=== PATIENT | male | born 1975 | race Two or more races ===

== ENCOUNTER 2019-10-05 11:51 | Emergency (ER) | payer SELFPAY ==
[~2019-10-05] VITALS: Ht 182.9 cm; Wt 81.6 kg
[~2019-10-05 11:51] MED LIST: RIBOFLAVIN100 MG PO
[2019-10-05 12:10] VITALS: BP 145/79
--- NOTE | 2019-10-05 12:20 | NUR ---
ED Nurse Note: Patient arrive to ED from home c/o n/v since this AM, patient states he has bouts of this often and does not know what causes s/s. Patient actively vomiting, has 10/10 aching abdominal pain in the medial lower abdomen. Patient has emesis bag, head of bead in [place] for safety. Patient AxO x 4, diaphoretic. 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
[2019-10-05] MEDS ORDERED: HYDROmorphone 1 MG, DiphenhydrAMINE 25 MG in NS 55 ML IV ONE (12:45)
[2019-10-05] MEDS ORDERED: LORazepam Inj 2mg/ml 1ml IV ONE (12:45)
[2019-10-05] MEDS ORDERED: ZOFRAN ODT8 MG ORAL (13:34)
[2019-10-05] MEDS ORDERED: DICYCLOMINE HCL10 MG ORAL (14:06)
--- NOTE | 2019-10-05 14:29 | Emergency Room Report ---
History of Present Illness General Chief Complaint: Abdominal Pain Source: Patient Present Illness HPI Patient presents with what he calls abdominal migraine Reports that he has been dealing with this for most of his life He reports getting cramping sensation in the mid abdomen followed by increased vomiting denies any fevers or chills denies any chest pain Patient reports that he has had significant work-up And essentially receiving antinausea medicine and Dilaudid is the only thing that seems to help denies any recent travel denies any blood in the stool Allergies: Coded Allergies: No Known Allergies (Unverified , 09/28/19) Patient History Past Medical History: see triage record Reviewed Nursing Documentation: PMH: Agreed; PSxH: Agreed Nursing Documentation-PMH Past Medical History: No History, Except For Review of Systems All Other Systems: negative except mentioned in HPI Physical Exam Vital Signs Date Time Temp Pulse Resp B/P (MAP) Pulse Ox O2 Delivery O2 Flow Rate FiO2 10/05/19 12:04 98.2 88 16 145/79 (101) 100 Room Air Sp02 EP Interpretation: reviewed, normal General Appearance: mild distress - Appears uncomfortable and actively vomiting Head: normocephalic, atraumatic Eyes: bilateral eye PERRL, bilateral eye EOMI ENT: hearing grossly normal, EOM grossly intact Neck: supple Respiratory: lungs clear, no respiratory distress, no retraction Cardiovascular #1: regular rate, rhythm Gastrointestinal: non tender, soft Musculoskeletal: normal inspection Neurologic: alert, oriented x3 Psychiatric: normal inspection Skin: no rash Lymphatic: normal inspection Medical Decision Making Diagnostic Impression: Primary Impression: abdominal apin ER Course With the history exam and presentation, multiple differentials considered, including but not limited to appendicitis, gastritis, cholecystitis, diverticulitis Patient does not want to have any further imaging performed He reports that the pain is very consistent with his usual discomfort Further IV hydration and intervention is made patient has done significantly better and resting comfortably And requires close outpatient follow-up Last Vital Signs Date Time Temp Pulse Resp B/P (MAP) Pulse Ox O2 Delivery O2 Flow Rate FiO2 10/05/19 13:44 98.2 10/05/19 12:10 88 16 145/79 100 Room Air Status: improved Disposition: HOME, SELF-CARE Condition: Improved Scripts Dicyclomine Hcl* (DICYCLOMINE HCL*) 10 Mg Capsule 10 MG ORAL TID, #10 CAP Prov: Rafael Davidson DO 10/05/19 Ondansetron Odt* (ZOFRAN ODT*) 8 Mg Tab.rapdis 4 MG ORAL Q12HR PRN for Nausea & Vomiting, #12 TAB Prov: Rafael Davidson DO 10/05/19 Referrals: [facility] Patient Instructions: Abdominal Pain, Adult Additional Instructions: Patient is provided with the discharge instructions notified to follow up with primary doctor in the next 2-3 days otherwise return to the er with any worsening symptoms. Please note that this report is being documented using [employer] technology. This can lead to erroneous entry secondary to incorrect interpretation by the dictating instrument. Rafael Davidson DO Oct 05, 2019 14:29
[2019-10-05 15:45] VITALS: BP 134/81
--- NOTE | 2019-10-05 15:45 | NUR ---
ED Nurse Note: Patient cleared for DC by Dr. Davidson. Per Dr. Davidson, patient allowed to rest in bed until stable on feet to go home. Patient walks with steady gait, no complaints of pain. IV and ID band removed. All belongings with patient, VSS.
== END 2019-10-05 15:45 | disposition home or self-care (01) ==
LOC: EMR 12:25
DX: R10.9 Unspecified abdominal pain (principal)
CPT/HCPCS: 96361; 96374; 96375; 99284; J1170; J1200; J7030

== ENCOUNTER 2019-10-07 08:59 | Emergency (ER) | payer SELFPAY ==
[~2019-10-07] VITALS: Ht 185.4 cm; Wt 81.6 kg
[~2019-10-07 08:59] MED LIST changes: +DICYCLOMINE HCL10 MG ORAL; +ZOFRAN ODT8 MG ORAL
[2019-10-07 09:02] VITALS: BP 149/103
--- NOTE | 2019-10-07 09:10 | NUR ---
ED Nurse Note: Patient walked into ED from home c/o abdominal pain 10/10 on the medial periumbilical but radiates diffusely over the abdomen. c/o nausea and vomiting. patient is vomiting in the ER, yellow liquid. patient reports hx of "abdominal migraine" and has been having recurring pain. patient is alert awake x4 ambulatory, breathing unlabored and even, speaking in full sentences. on a hospital gown.
--- NOTE | 2019-10-07 09:22 | Emergency Room Report ---
History of Present Illness General Chief Complaint: Abdominal Pain Source: Patient Present Illness HPI 44-year-old male presents after increased abdominal discomfort. Patient reports having multiple episodes of similar symptoms in the past. Had previous cholecystectomy. Denies any diarrhea. Reports having epigastric discomfort. Denies any fever. Denies any diarrhea. States he has prior history of intestinal migraines. Had recently been seen at this emergency department. Reports having multiple negative imaging studies in the past. Reports having a prior endoscopy. Allergies: Coded Allergies: No Known Allergies (Unverified , 09/28/19) Patient History Past Medical History: see triage record Reviewed Nursing Documentation: PMH: Agreed; PSxH: Agreed Nursing Documentation-PMH Past Medical History: No History, Except For Review of Systems All Other Systems: negative except mentioned in HPI Physical Exam Vital Signs Date Time Temp Pulse Resp B/P (MAP) Pulse Ox O2 Delivery O2 Flow Rate FiO2 10/07/19 09:02 98.2 94 19 149/103 (118) 99 Room Air Sp02 EP Interpretation: reviewed, normal General Appearance: normal inspection, well appearing, no apparent distress, alert, GCS 15 Head: atraumatic ENT: normal ENT inspection, hearing grossly normal, normal voice Neck: normal inspection, full range of motion, supple, no bony tend Respiratory: normal inspection, lungs clear, normal breath sounds, no respiratory distress, no retraction, no wheezing Cardiovascular #1: regular rate, rhythm, no edema Gastrointestinal: normal inspection, normal bowel sounds, non tender, soft, no guarding, no hernia, other - Mild diffuse tenderness without any guarding or rebound Genitourinary: no CVA tenderness Musculoskeletal: normal inspection, back normal, normal range of motion Neurologic: alert, responsive, speech normal, normal inspection Psychiatric: normal inspection, judgement/insight normal, mood/affect normal Medical Decision Making Diagnostic Impression: Primary Impression: Nonspecific abdominal pain Additional Impression: Hyperemesis ER Course Patient presented for abdominal pain. Differential diagnoses included ischemic bowel, appendicitis, perforated viscus, abdominal aortic aneurysm, inferior myocardial infarction, viral gastroenteritis among others.Because patient's complexity laboratory testing ordered.Patient reports having multiple similar episodes in the past. He states he has prior history of abdominal migraine. He does report smoking marijuana daily. Reports frequent episodes of nausea without any vomiting. He states he is had this for many years. Patient requested narcotic pain medications however I do not feel this is indicated. Patient was given IV Haldol, capsaicin and IV Benadryl. He stated he had improvement in his symptoms. Lipase was normal White blood count was normal Patient appears to be stable for close outpatient follow up. Patient was advised to discontinue marijuana use. He was advised to follow-up with his primary care physician for recheck. Patient is advised to return if any worsening condition or if any changes in status that are concerning. This report is dictated with [employer] dry [employer] tender software which may occasionally lead to discrepancies related to use of this software. Labs Test 10/07/19 09:40 10/07/19 09:55 Prothrombin Time 10.8 SEC (9.30-11.50) Prothromb Time International Ratio 1.0 (0.9-1.1) Activated Partial Thromboplast Time 25 SEC (23-33) Sodium Level 142 MMOL/L (136-145) Potassium Level 4.2 MMOL/L (3.5-5.1) Chloride Level 104 MMOL/L (98-107) Carbon Dioxide Level 28 MMOL/L (21-32) Anion Gap 11 mmol/L (5-15) Blood Urea Nitrogen 25 mg/dL (7-18) Creatinine 1.4 MG/DL (0.55-1.30) Estimat Glomerular Filtration Rate 55.1 mL/min (>60) Glucose Level 120 MG/DL (74-106) Calcium Level 9.8 MG/DL (8.5-10.1) Total Bilirubin 1.0 MG/DL (0.2-1.0) Aspartate Amino Transf (AST/SGOT) 14 U/L (15-37) Alanine Aminotransferase (ALT/SGPT) 26 U/L (12-78) Alkaline Phosphatase 53 U/L (46-116) Total Protein 8.1 G/DL (6.4-8.2) Albumin 4.2 G/DL (3.4-5.0) Globulin 3.9 g/dL Albumin/Globulin Ratio 1.1 (1.0-2.7) Lipase 371 U/L (73-393) White Blood Count 12.1 K/UL (4.8-10.8) Red Blood Count 5.40 M/UL (4.70-6.10) Hemoglobin 16.4 G/DL (14.2-18.0) Hematocrit 45.2 % (42.0-52.0) Mean Corpuscular Volume 84 FL (80-99) Mean Corpuscular Hemoglobin 30.3 PG (27.0-31.0) Mean Corpuscular Hemoglobin Concent 36.2 G/DL (32.0-36.0) Red Cell Distribution Width 11.4 % (11.6-14.8) Platelet Count 320 K/UL (150-450) Mean Platelet Volume 6.1 FL (6.5-10.1) Neutrophils (%) (Auto) 79.2 % (45.0-75.0) Lymphocytes (%) (Auto) 14.8 % (20.0-45.0) Monocytes (%) (Auto) 5.4 % (1.0-10.0) Eosinophils (%) (Auto) 0.0 % (0.0-3.0) Basophils (%) (Auto) 0.6 % (0.0-2.0) Last Vital Signs Date Time Temp Pulse Resp B/P (MAP) Pulse Ox O2 Delivery O2 Flow Rate FiO2 10/07/19 09:02 98.2 94 19 149/103 (118) 99 Room Air Status: improved Disposition: HOME, SELF-CARE Condition: Stable Scripts Capsaicin (CAPSAICIN) 42.5 Gm Cream..g. 1 GM TP NEEDED, #42.5 GM Prov: Pradeep Mariano MD 10/07/19 Omeprazole (OMEPRAZOLE) 20 Mg Capsule. 20 MG ORAL DAILY, #30 CAP Prov: Pradeep Mariano MD 10/07/19 Pradeep Mariano MD Oct 07, 2019 09:22
[2019-10-07] MEDS ORDERED: Haloperidol Lactate 5 MG in D5W 55 ML IVPB ONE (09:30)
[2019-10-07] MEDS ORDERED: Capsaicin 0.075% Cream TOPIC ONE (09:30)
[2019-10-07] MEDS ORDERED: DiphenhydrAMINE 50mg/ml Inj IVP ONE (10:15)
--- NOTE | 2019-10-07 10:17 | NUR ---
ED Nurse Note: patient refused benadryl, patient reports "I need dilaudid, benadryl does not work for me." notified to Dr. Mariano.
[2019-10-07 10:27] LABS: BASOPHILS % (AUTO) 0.6 % (0.0-2.0); HEMATOCRIT 45.2 % (42.0-52.0); HEMOGLOBIN 16.4 G/DL (14.2-18.0); LYMPHOCYTES % (AUTO) 14.8 % (20.0-45.0); MEAN CORPUSCULAR VOLUME 84 FL (80-99); MONOCYTES % (AUTO) 5.4 % (1.0-10.0); NEUTROPHILS % (AUTO) 79.2 % (45.0-75.0); PLATELET COUNT 320 K/UL (150-450); RED CELL DISTRIBUTION WIDTH 11.4 % (11.6-14.8); WHITE BLOOD COUNT 12.1 K/UL (4.8-10.8)
[2019-10-07 10:28] LABS: ANION GAP 11 mmol/L (5-15); BLOOD UREA NITROGEN 25 mg/dL (7-18); CALCIUM 9.8 MG/DL (8.5-10.1); CARBON DIOXIDE 28 MMOL/L (21-32); CHLORIDE 104 MMOL/L (98-107); CREATININE 1.4 MG/DL (0.55-1.30); POTASSIUM 4.2 MMOL/L (3.5-5.1); SODIUM 142 MMOL/L (136-145)
[2019-10-07 10:39] LABS: ALANINE AMINOTRANSFERASE 26 U/L (12-78); ALBUMIN 4.2 G/DL (3.4-5.0); ALBUMIN/GLOBULIN RATIO 1.1 (1.0-2.7); ALKALINE PHOSPHATASE 53 U/L (46-116); ASPARTATE AMINO TRANSFERASE 14 U/L (15-37)
[2019-10-07] MEDS ORDERED: CAPSAICIN42.5 GM TP (11:04)
[2019-10-07] MEDS ORDERED: OMEPRAZOLE20 M2 ORAL (11:04)
--- NOTE | 2019-10-07 11:06 | NUR ---
ER DISCHARGE NOTE: Patient is cleared to be discharged per ERMD, pt is aox4, on room air, with stable vital signs. pt was given dc and prescription instructions, pt was able to verbalize understanding, pt id band and iv site removed without complications. pt is able to ambulate with steady gait. pt took all belongings.
[2019-10-07 11:14] VITALS: BP 149/103
== END 2019-10-07 11:10 | disposition home or self-care (01) ==
LOC: EMR 09:23
DX: R10.9 Unspecified abdominal pain (principal); R11.10 Vomiting, unspecified
CPT/HCPCS: 36415; 80053; 83690; 85025; 85610; 85730; 96361; 96374; 99284; J1630; J7030